=== PATIENT | male | born 2005 | race Two or more races ===

== ENCOUNTER 2023-03-08 12:07 | Emergency (ER) | payer OTHER ==
[~2023-03-08] VITALS: Ht 170.2 cm; Wt 59.0 kg
== END 2023-03-08 21:36 | disposition home or self-care (01) ==
LOC: ER 12:08 → EMR PED 12:31 → ER 12:31 → EMR PED 21:36
DX: S20.221A Contusion of right back wall of thorax, initial encounter (principal); S30.0XXA Contusion of lower back and pelvis, initial encounter; V89.0XXA Person injured in unspecified motor-vehicle accident, nontraffic, initial encounter; Y93.89 Activity, other specified; Y92.89 Other specified places as the place of occurrence of the external cause; Y99.9 Unspecified external cause status